=== PATIENT | female | born 1945 | race Caucasian/White ===

== ENCOUNTER 2017-01-31 13:09 | Inpatient (IN) | payer OTHER, MEDICARE ==
[~2017-01-31] VITALS: Ht 165.1 cm; Wt 68.7 kg
[2017-01-31 14:51] LABS: HEMATOCRIT 35.2 % (36.0-46.0); MCH 29.4 PG (29.0-34.0); MCHC 33.2 G/DL (30.0-36.0); MCV 88.4 FL (83-99); MEAN PLAT.VOLUME 9.2 uM^3 (9.5-12.4); PLATELET COUNT 282 K/uL (156-360); RBC DIS.WIDTH-CV 13.9 % (11.8-14.6); RED BLOOD COUNT 3.98 M/uL (3.80-5.20); WHITE BLOOD COUNT 13.5 K/uL (4.1-10.2)
[2017-01-31 15:00] LABS: INTER. NORMALIZED RATIO 1.1; PROTHROMBIN TIME 11.6 (9.2-11.2); PTT 23.8 (25-32)
[2017-01-31 15:01] LABS: CHLORIDE 105 mEq/L (99-109); POTASSIUM 2.9 mEq/L (3.7-5.4); SODIUM 145 mEq/L (136-147)
[2017-01-31 15:03] LABS: GLUCOSE 115 mg/dL (70-99)
[2017-01-31 15:04] LABS: ANION GAP 16 MEQ/L (2-14)
[2017-01-31 15:05] LABS: TOTAL BILIRUBIN 0.5 mg/dL (0.0-1.0)
[2017-01-31 15:07] LABS: ALKALINE PHOSPHATASE 99 IU/L (3-129); GFR ESTIMATE (CALCULATED) 39 mL/min/
[2017-01-31 15:08] LABS: UREA NITROGEN (BUN) 28 mg/dL (9-23)
[2017-01-31] MEDS ORDERED: HYDROCHLOROTHIA25 MG PO (16:33)
[2017-01-31] MEDS ORDERED: LOSARTAN POTASS50 MG PO (16:33)
[2017-01-31] MEDS ORDERED: TRAZODONE HCL50 MG PO (16:33)
[2017-01-31] MEDS ORDERED: LO-DOSE ASPIRIN81 M2 PO (16:33)
[2017-01-31] MEDS ORDERED: GINKGO BILOBA60 MG PO (16:33)
[2017-01-31] MEDS ORDERED: PRAVACHOL20 MG PO (16:33)
[2017-01-31] MEDS ORDERED: SEROQUEL12.5 MG PO (16:33)
[2017-01-31] MEDS ORDERED: 50+ COMPANION0.4 MG PO (16:34)
[2017-01-31] MEDS ORDERED: MELATIN3 MG PO (16:34)
[2017-01-31] MEDS ORDERED: BACLOFEN10 MG PO (16:34)
[2017-01-31 18:00] LABS: ADD MIUA? YES; BILIRUBIN NEGATIVE; BLOOD NEGATIVE; COLOR AMBER ((YELLOW)); GLUCOSE (STRIP) NEGATIVE; KETONES NEGATIVE; LEUKOCYTES TRACE; NITRITE NEGATIVE; PROTEIN (STRIP) NEGATIVE; SPECIFIC GRAVITY 1.018 (1.000-1.030); UROBILINOGEN 0.2 MG/DL (0.2-1.0)
[2017-01-31 18:06] LABS: BACTERIA RARE /HPF; CALCIUM OXALATE CRYSTALS 4+ /HPF; EPITHELIAL CELLS NONE SEEN /HPF; HYALINE CASTS 0-5 /LPF; MUCUS TRACE /LPF; RED BLOOD CELLS 0-5 /HPF (0-5); UCUL ADDED? NO
[2017-01-31 19:20] VITALS: BP 132/74
[2017-02-01 04:09] VITALS: BP 128/64
[2017-02-01 04:47] LABS: HEMATOCRIT 30.9 % (36.0-46.0); MCH 29.5 PG (29.0-34.0); MCHC 32.7 G/DL (30.0-36.0); MCV 90.4 FL (83-99); MEAN PLAT.VOLUME 9.1 uM^3 (9.5-12.4); PLATELET COUNT 269 K/uL (156-360); RBC DIS.WIDTH-CV 14.3 % (11.8-14.6); RBC DIS.WIDTH-SD 46.3 % (39-53); RED BLOOD COUNT 3.42 M/uL (3.80-5.20); WHITE BLOOD COUNT 10.5 K/uL (4.1-10.2)
[2017-02-01 05:11] LABS: CHLORIDE 111 mEq/L (99-109); SODIUM 145 mEq/L (136-147)
[2017-02-01 05:12] LABS: GLUCOSE 120 mg/dL (70-99); POTASSIUM 4.3 mEq/L (3.7-5.4)
[2017-02-01 05:14] LABS: ANION GAP 10 MEQ/L (2-14)
[2017-02-01 05:16] LABS: GFR ESTIMATE (CALCULATED) 43 mL/min/
[2017-02-01 05:17] LABS: UREA NITROGEN (BUN) 29 mg/dL (9-23)
[2017-02-01 08:02] VITALS: BP 142/63
[2017-02-01 08:27] LABS: HEMATOCRIT 29.9 % (36.0-46.0); MCV 91.2 FL (83-99)
[2017-02-01 11:59] VITALS: BP 132/90
[2017-02-01 15:18] LABS: INTER. NORMALIZED RATIO 1.1
[2017-02-01 16:00] VITALS: BP 130/58
[2017-02-01 16:43] LABS: ADD MIUA? YES; BILIRUBIN NEGATIVE; BLOOD SMALL; COLOR YELLOW ((YELLOW)); GLUCOSE (STRIP) NEGATIVE; KETONES NEGATIVE; LEUKOCYTES TRACE; NITRITE NEGATIVE; PROTEIN (STRIP) NEGATIVE; SPECIFIC GRAVITY 1.018 (1.000-1.030); UROBILINOGEN 0.2 MG/DL (0.2-1.0)
[2017-02-01 16:51] LABS: BACTERIA RARE /HPF; EPITHELIAL CELLS NONE SEEN /HPF; GRANULAR CASTS 0-5 /LPF; HYALINE CASTS 0-5 /LPF; MUCUS TRACE /LPF; UCUL ADDED? NO; UNCLASSIFIED CRYSTALS 3+ /HPF; URIC ACID CRYSTALS 3+ /HPF; WHITE BLOOD CELLS 0-5 /HPF (0-5)
[2017-02-01 19:46] VITALS: BP 145/78
[2017-02-01 23:51] VITALS: BP 124/56
[2017-02-02 03:55] VITALS: BP 123/62
[2017-02-02 05:41] LABS: MCV 92.8 FL (83-99)
[2017-02-02 05:49] LABS: INTER. NORMALIZED RATIO 1.1; PROTHROMBIN TIME 11.3 (9.2-11.2)
[2017-02-02 07:39] VITALS: BP 139/65
[2017-02-02 08:03] LABS: HEMATOCRIT 27.4 % (36.0-46.0); MCH 29.4 PG (29.0-34.0); MCHC 31.4 G/DL (30.0-36.0); MCV 93.5 FL (83-99); MEAN PLAT.VOLUME 10.1 uM^3 (9.5-12.4); PLATELET COUNT 216 K/uL (156-360); RBC DIS.WIDTH-SD 50.4 % (39-53); RED BLOOD COUNT 2.93 M/uL (3.80-5.20); WHITE BLOOD COUNT 10.3 K/uL (4.1-10.2)
[2017-02-02 08:10] LABS: ANION GAP 13 MEQ/L (2-14); CHLORIDE 109 MEQ/L (99-109); POTASSIUM 3.7 MEQ/L (3.7-5.4); SAMPLE HEMOLYSIS CHECK 0; SAMPLE ICTERIC CHECK 0; SAMPLE LIPEMIA CHECK 0; SODIUM 146 MEQ/L (136-147)
[2017-02-02 08:15] LABS: GFR ESTIMATE (CALCULATED) 43 mL/min/; GLUCOSE 104 mg/dL (70-99); UREA NITROGEN (BUN) 24 mg/dL (9-23)
[2017-02-02 11:25] VITALS: BP 132/63
[2017-02-02 15:18] VITALS: BP 132/60
[2017-02-02 20:15] VITALS: BP 129/60
[2017-02-03] VITALS (11 sets, daily range): BP systolic 120–144; BP diastolic 53–86
[2017-02-03 06:12] LABS: HEMATOCRIT 20.6 % (36.0-46.0); MCH 29.9 PG (29.0-34.0); MCHC 32.5 G/DL (30.0-36.0); MEAN PLAT.VOLUME 9.3 uM^3 (9.5-12.4); PLATELET COUNT 160 K/uL (156-360); RBC DIS.WIDTH-CV 14.9 % (11.8-14.6); WHITE BLOOD COUNT 8.2 K/uL (4.1-10.2)
[2017-02-03 06:14] LABS: ANION GAP 6 MEQ/L (2-14); CHLORIDE 108 MEQ/L (99-109); GFR ESTIMATE (CALCULATED) 58 mL/min/; GLUCOSE 113 mg/dL (70-99); POTASSIUM 3.2 MEQ/L (3.7-5.4); SAMPLE HEMOLYSIS CHECK 0; SAMPLE ICTERIC CHECK 0; SAMPLE LIPEMIA CHECK 0; SODIUM 142 MEQ/L (136-147); UREA NITROGEN (BUN) 20 mg/dL (9-23)
[2017-02-03 06:22] LABS: INTER. NORMALIZED RATIO 1.3
[2017-02-03 06:35] LABS: RED BLOOD COUNT 2.24 M/uL (3.80-5.20)
[2017-02-03 07:47] LABS: MAGNESIUM 1.3 mg/dl (1.3-2.7)
[2017-02-03 11:01] LABS: ADD MIUA? NO; BILIRUBIN NEGATIVE; BLOOD NEGATIVE; COLOR YELLOW ((YELLOW)); GLUCOSE (STRIP) NEGATIVE; KETONES NEGATIVE; LEUKOCYTES NEGATIVE; NITRITE NEGATIVE; PROTEIN (STRIP) NEGATIVE; SPECIFIC GRAVITY 1.016 (1.000-1.030); UROBILINOGEN 0.2 MG/DL (0.2-1.0)
[2017-02-04 00:03] VITALS: BP 135/63
[2017-02-04 06:00] LABS: ABSOLUTE RETICULOCYTE CT. 0.1 M/uL (0.02-0.08)
[2017-02-04 06:16] LABS: INTER. NORMALIZED RATIO 1.6; PROTHROMBIN TIME 16.3 (9.2-11.2)
[2017-02-04 06:23] LABS: GLOBULINS 1.9 G/DL (2.3-3.5)
[2017-02-04 06:24] LABS: C-REACTIVE PROTEIN 156.3 MG/L (0-10); HEMATOCRIT 28.9 % (36.0-46.0); MCV 89.8 FL (83-99)
[2017-02-04 07:42] LABS: FERRITIN 260 NG/ML (10-291)
[2017-02-04 08:00] VITALS: BP 130/65
[2017-02-04 08:11] LABS: ANION GAP 9 MEQ/L (2-14); CHLORIDE 108 MEQ/L (99-109); GFR ESTIMATE (CALCULATED) > 59 mL/min/; GLUCOSE 98 mg/dL (70-99); POTASSIUM 3.4 MEQ/L (3.7-5.4); SODIUM 144 MEQ/L (136-147); UREA NITROGEN (BUN) 15 mg/dL (9-23)
[2017-02-04 08:17] LABS: HEMATOCRIT 29.1 % (36.0-46.0); MCH 30.1 PG (29.0-34.0); MCHC 33.3 G/DL (30.0-36.0); MCV 90.4 FL (83-99); MEAN PLAT.VOLUME 9.8 uM^3 (9.5-12.4); PLATELET COUNT 163 K/uL (156-360); RBC DIS.WIDTH-CV 15.3 % (11.8-14.6); RBC DIS.WIDTH-SD 49.4 % (39-53); WHITE BLOOD COUNT 8.8 K/uL (4.1-10.2)
[2017-02-04 08:20] LABS: RED BLOOD COUNT 3.22 M/uL (3.80-5.20)
[2017-02-04 11:37] LABS: ALBUMIN 2.31 G/DL (3.6-4.9); ALBUMIN PERCENT 53.7 %; ALPHA-1 GLOBULIN 0.33 G/DL (0.15-0.40); ALPHA-1 PERCENT 7.6 %; ALPHA-2 PERCENT 16.3 %; GAMMA PERCENT 9.4 %; SERUM GEL NO. 39-7
[2017-02-04 16:28] VITALS: BP 132/63
[2017-02-04 23:51] VITALS: BP 128/61
[2017-02-05 04:55] VITALS: BP 136/71
[2017-02-05 06:19] LABS: HEMATOCRIT 29.3 % (36.0-46.0); MCH 29.8 PG (29.0-34.0); MCHC 32.8 G/DL (30.0-36.0); MEAN PLAT.VOLUME 9.7 uM^3 (9.5-12.4); PLATELET COUNT 176 K/uL (156-360); RBC DIS.WIDTH-CV 15.4 % (11.8-14.6); RBC DIS.WIDTH-SD 50.1 % (39-53); RED BLOOD COUNT 3.22 M/uL (3.80-5.20); WHITE BLOOD COUNT 8.2 K/uL (4.1-10.2)
[2017-02-05 06:36] LABS: INTER. NORMALIZED RATIO 1.3; PROTHROMBIN TIME 13.4 (9.2-11.2)
[2017-02-05 06:43] LABS: ANION GAP 8 MEQ/L (2-14); CHLORIDE 109 MEQ/L (99-109); GFR ESTIMATE (CALCULATED) > 59 mL/min/; GLUCOSE 93 mg/dL (70-99); POTASSIUM 3.5 MEQ/L (3.7-5.4); SAMPLE HEMOLYSIS CHECK 0; SAMPLE ICTERIC CHECK 0; SAMPLE LIPEMIA CHECK 0; SODIUM 145 MEQ/L (136-147); UREA NITROGEN (BUN) 16 mg/dL (9-23)
[2017-02-05 07:46] VITALS: BP 136/71
[2017-02-05 15:54] VITALS: BP 154/68
[2017-02-05 23:44] VITALS: BP 130/60
[2017-02-06 05:53] LABS: HEMATOCRIT 29.1 % (36.0-46.0); MCH 29.8 PG (29.0-34.0); MCHC 32.6 G/DL (30.0-36.0); MCV 91.2 FL (83-99); PLATELET COUNT 194 K/uL (156-360); RBC DIS.WIDTH-CV 15.3 % (11.8-14.6); RBC DIS.WIDTH-SD 49.6 % (39-53); RED BLOOD COUNT 3.19 M/uL (3.80-5.20); WHITE BLOOD COUNT 8.2 K/uL (4.1-10.2)
[2017-02-06 06:22] LABS: ANION GAP 11 MEQ/L (2-14); CHLORIDE 113 MEQ/L (99-109); GFR ESTIMATE (CALCULATED) > 59 mL/min/; GLUCOSE 99 mg/dL (70-99); POTASSIUM 3.9 MEQ/L (3.7-5.4); SAMPLE HEMOLYSIS CHECK 0; SAMPLE ICTERIC CHECK 0; SAMPLE LIPEMIA CHECK 0; SODIUM 149 MEQ/L (136-147); UREA NITROGEN (BUN) 19 mg/dL (9-23)
[2017-02-06 07:00] LABS: INTER. NORMALIZED RATIO 1.2; PROTHROMBIN TIME 11.9 (9.2-11.2)
[2017-02-06 07:48] VITALS: BP 142/67
[2017-02-06 09:58] LABS: C DIFF TOXIN NEGATIVE (NEGATIVE)
[2017-02-06 10:00] LABS: PROBE CHECK PASS; SPECIMEN PROCESSING CONTROL PASS
[2017-02-06 11:24] LABS: IFE GEL NO. 36-5
== END 2017-02-06 14:19 | DRG 481 ==
LOC: EME → EDBD 13:09 → EME 13:09 → EDOF 17:02 → 3EAST 17:02
PROVIDERS: Emergency Medicine; Hospitalist; Internal Medicine; Internal Medicine Hematology & Oncology; Nurse Practitioner Family; Orthopaedic Surgery; Physician Assistant
PROC: 0QS706Z Reposition Left Upper Femur with Intramedullary Internal Fixation Device, Open Approach (ICD-10-PCS; principal; 2017-02-01)
PROC: 30233N1 Transfusion of Nonautologous Red Blood Cells into Peripheral Vein, Percutaneous Approach (ICD-10-PCS; 2017-02-03)
DX: S72.142A Displaced intertrochanteric fracture of left femur, initial encounter for closed fracture (principal); N17.9 Acute kidney failure, unspecified; D62 Acute posthemorrhagic anemia; S62.522A Displaced fracture of distal phalanx of left thumb, initial encounter for closed fracture; W18.30XA Fall on same level, unspecified, initial encounter; E86.0 Dehydration; E87.6 Hypokalemia; R25.2 Cramp and spasm; I10 Essential (primary) hypertension; E78.5 Hyperlipidemia, unspecified; G30.9 Alzheimer's disease, unspecified; F02.80 Dementia in other diseases classified elsewhere, unspecified severity, without behavioral disturbance, psychotic disturbance, mood disturbance, and anxiety; Y92.009 Unspecified place in unspecified non-institutional (private) residence as the place of occurrence of the external cause; Z79.82 Long term (current) use of aspirin
CPT/HCPCS: 71010; 73140; 73501; 73502; 73552; 74177; 76000; 80048; 80053; 81003; 82272; 82607; 82728; 82746; 83735; 83883 90; 84165; 85014; 85018; 85027; 85045; 85610; 85651; 85730; 86140; 86334; 86850; 86900; 86901; 86920; 87086; 87493; 93005; 97530 GP; 99281; 99284; J0690; J1170; J1644; J1940; J2270; J2405; J3010; J3475; J3480; J7030; J7040; J7050; J7120; P9016